=== PATIENT | male | born 1945 | race Caucasian/White ===

== ENCOUNTER 2023-12-31 11:18 | Inpatient (IN) | payer MEDICARE ==
[2023-12-31 12:17] LABS: #Basophils 0.04 10x3/uL (0.0-0.2); %Basophils 0.5 % (0.0-1.0); %Eosinophils 2.2 % (0.0-10.0); %Lymphocytes 16.4 % (21.0-51.0); %Monocytes 8.2 % (0.0-10.0); %Neutrophils 72.3 % (42.0-75.0); Hemoglobin 14.1 g/dL (14.0-18.0); Mean Corpuscular HGB CONC 33.6 g/dL (32.0-36.0); Mean Corpuscular Hemoglobin 28.4 pg (27.0-31.0); Mean Corpuscular Volume 84.7 fL (78.0-98.0); Mean Platelet Volume 10.3 fL (7.4-10.4); Platelet Count 241 10x3/uL (130-400); RBC Distribution Width 15.8 % (11.5-14.5); Red Blood Cell (RBC) Count 4.96 mill/uL (4.70-6.10)
[2023-12-31 12:41] LABS: Globulin 3.5 g/dL (2.4-3.5)
[2023-12-31 12:45] LABS: ALT (SGPT) 11 U/L (8-55); AST (SGOT) 13 U/L (5-34); Albumin 3.3 g/dL (3.4-4.8); Alkaline Phosphatase 74 U/L (40-110); Anion Gap 14 mmol/L (10-20); BUN (Urea Nitrogen) 25 mg/dL (8.4-25.7); Bilirubin, Total 0.4 mg/dL (0.2-1.2); Calc. Creatinine Clearance 0 mL/min (70-130); Calcium 9.3 mg/dL (7.8-10.44); Carbon Dioxide 23 mmol/L (23-31); Chloride 103 mmol/L (98-107); Estimated GFR 40; Glucose 253 mg/dL (83-110); Potassium 4.1 mmol/L (3.5-5.1); Protein, Total 6.8 g/dL (5.8-8.1); Sodium 136 mmol/L (136-145)
[2023-12-31 13:13] LABS: Critical Call Chem Troponin I NUR.JH15; Troponin I 0.408 ng/mL (< 0.028)
[2023-12-31] MEDS ORDERED: Iopamidol 370 76% 100 ML VIAL ONE (13:14)
[2023-12-31] MEDS ORDERED: Nitroglycerin 2% Ointment 1 INCH/1 GM Packet ONE (13:38)
[2023-12-31] MEDS ORDERED: Heparin 5,000 UNITS/ML VIAL ONE (13:38)
[2023-12-31] MEDS ORDERED: Heparin 25,000 units/D5W 500 ML ONE (13:39)
[2023-12-31 13:48] LABS: Prothrombin Time 13.1 sec (12.0-14.7)
[2023-12-31] MEDS ORDERED: Heparin 10,000 UNITS/ 10 ML VIAL ONE (14:38)
[2023-12-31] MEDS ORDERED: Verapamil 5 MG/2 ML VIAL ONE (14:38)
[2023-12-31] MEDS ORDERED: Nitroglycerin 50 MG/250 ML BOT 0 ML ONE (14:39)
[2023-12-31] MEDS ORDERED: Sodium Chloride 0.9% 500 ML IV SCH (15:00)
[2023-12-31] MEDS ORDERED: [UNRECOGNIZED DRUG - OTHER] FS SCH (15:00)
[2023-12-31] MEDS ORDERED: fentaNYL 50 mcg/mL 1 mL Vial ONE (15:14)
[2023-12-31] MEDS ORDERED: Midazolam HCl 2 mg/2 ml Vial ONE (15:15)
[2023-12-31] MEDS ORDERED: Sodium Chloride 0.9% 200 ML IV PRN (15:49)
[2023-12-31] MEDS ORDERED: Acetaminophen/Codeine 30-300mg Tablet PO PRN (15:49)
[2023-12-31] MEDS ORDERED: Nitroglycerin 0.4 MG TAB (25 Tab Bottle) SL PRN (15:49)
[2023-12-31] MEDS ORDERED: Communication Order-Pharmacy FS SCH (17:52)
[2023-12-31] MEDS ORDERED: Acetaminophen 325 MG TAB PO PRN (18:51)
[2023-12-31] MEDS ORDERED: Dextrose 5% in Water 1,000 ML IV PRN (18:51)
[2023-12-31] MEDS ORDERED: Dextrose 50% Abboject 50 ML SYRINGE SLOW IVP PRN (18:51)
[2023-12-31] MEDS ORDERED: HYDROcodone/Acetaminophen 5/325 mg Tablet PO PRN ×2 (18:51)
[2023-12-31] MEDS ORDERED: Ondansetron PF 4 MG/2 ML Vial IVP PRN (18:51)
[2023-12-31] MEDS ORDERED: Glucagon 1 MG/ML KIT IM PRN (18:51)
[2023-12-31] MEDS ORDERED: Bisacodyl 5 MG TAB PO PRN (18:51)
[2023-12-31] MEDS ORDERED: HumaLOG 300 UNITS/3 ML VIAL SC PRN (18:51)
[2023-12-31 19:40] LABS: Hemoglobin A1c 9.4 % (4.0-6.0)
[2023-12-31] MEDS: Sodium Chloride 0.9% 500 ML IV SCH (20:00)
[2023-12-31 20:35] LABS: Troponin I 0.659 ng/mL (< 0.028)
[2023-12-31 20:56] VITALS: BMI 25.0
[2023-12-31 23:53] LABS: Critical Call Chem Troponin I RESULT DECREASING; Troponin I 0.621 ng/mL (< 0.028)
[2024-01-01 04:58] LABS: #Basophils 0.05 10x3/uL (0.0-0.2); %Basophils 0.7 % (0.0-1.0); %Eosinophils 2.5 % (0.0-10.0); %Monocytes 7.7 % (0.0-10.0); %Neutrophils 67.8 % (42.0-75.0); Hemoglobin 12.9 g/dL (14.0-18.0); Mean Corpuscular HGB CONC 33.1 g/dL (32.0-36.0); Mean Corpuscular Hemoglobin 28.6 pg (27.0-31.0); Mean Corpuscular Volume 86.5 fL (78.0-98.0); Mean Platelet Volume 10.3 fL (7.4-10.4); Platelet Count 226 10x3/uL (130-400); RBC Distribution Width 15.8 % (11.5-14.5); Red Blood Cell (RBC) Count 4.51 mill/uL (4.70-6.10)
[2024-01-01 05:38] LABS: Anion Gap 12 mmol/L (10-20); BUN (Urea Nitrogen) 20 mg/dL (8.4-25.7); Calc. Creatinine Clearance 43 mL/min (70-130); Carbon Dioxide 24 mmol/L (23-31); Cardiac Risk 4.3 (Less than 4.5); Chloride 106 mmol/L (98-107); Cholesterol 138 mg/dl (< 200 Desired); Estimated GFR 50; Glucose 115 mg/dL (83-110); HDL Cholesterol 32 mg/dL (>60 Neg Risk); LDL Cholesterol, Calculated 84 mg/dL; Potassium 4.2 mmol/L (3.5-5.1); Sodium 138 mmol/L (136-145); Triglycerides 112 mg/dL (Less than 150)
[2024-01-01] MEDS ORDERED: Dextrose 5% in Water 1,000 ML IV PRN (09:11)
[2024-01-01] MEDS ORDERED: Glucagon 1 MG/ML KIT IM PRN (09:11)
[2024-01-01] MEDS ORDERED: Dextrose 50% Abboject 50 ML SYRINGE SLOW IVP PRN (09:11)
[2024-01-01] MEDS: Hydrochlorothiazide 25 MG TAB PO SCH (09:53)
[2024-01-01] MEDS: Aspirin 325 mg Enteric Coated Tablet PO SCH (09:53)
[2024-01-01] MEDS: Atorvastatin Calcium 40 MG TAB PO SCH (09:53)
[2024-01-01] MEDS: Pantoprazole 40 MG VIAL IVP SCH (09:54)
[2024-01-01] MEDS: Lisinopril 20 MG TAB PO SCH (09:54)
[2024-01-01 10:50] LABS: Hematocrit 41.5 % (42.0-52.0); Hemoglobin 13.9 g/dL (14.0-18.0); Platelet Count 233 10x3/uL (130-400)
[2024-01-01] MEDS: Morphine 4 MG/ML VIAL ONE (11:39)
[2024-01-01] MEDS: Nateglinide 120 MG TAB PO SCH (11:39)
[2024-01-01] MEDS: Heparin 25,000 units/D5W 500 ML IVPB SCH (11:40)
[2024-01-01] MEDS: Morphine 4 MG/ML VIAL SLOW IVP SCH (11:40)
[2024-01-01] MEDS: Nitroglycerin 50 MG/250 ML BOT 250 ML IVPB SCH (11:40)
[2024-01-01] MEDS: Heparin 10,000 UNITS/ 10 ML VIAL SLOW IVP SCH (11:46)
[2024-01-01] MEDS: HumaLOG 300 UNITS/3 ML VIAL SC PRN (12:19)
[2024-01-01] MEDS ORDERED: Communication Order-Pharmacy FS SCH (13:52)
[2024-01-01] MEDS ORDERED: [UNRECOGNIZED DRUG - REMARK] FS SCH (15:00)
[2024-01-02 04:55] LABS: #Basophils 0.05 10x3/uL (0.0-0.2); %Basophils 0.6 % (0.0-1.0); %Lymphocytes 21.4 % (21.0-51.0); %Monocytes 8.6 % (0.0-10.0); %Neutrophils 66.1 % (42.0-75.0); Hematocrit 39.6 % (42.0-52.0); Hemoglobin 13.1 g/dL (14.0-18.0); Mean Corpuscular HGB CONC 33.1 g/dL (32.0-36.0); Mean Corpuscular Hemoglobin 28.5 pg (27.0-31.0); Mean Corpuscular Volume 86.3 fL (78.0-98.0); Mean Platelet Volume 10.1 fL (7.4-10.4); Platelet Count 210 10x3/uL (130-400); RBC Distribution Width 15.9 % (11.5-14.5); Red Blood Cell (RBC) Count 4.59 mill/uL (4.70-6.10)
[2024-01-02 05:46] LABS: Anion Gap 12 mmol/L (10-20); BUN (Urea Nitrogen) 26 mg/dL (8.4-25.7); Calc. Creatinine Clearance 36 mL/min (70-130); Calcium 9.2 mg/dL (7.8-10.44); Carbon Dioxide 26 mmol/L (23-31); Chloride 102 mmol/L (98-107); Estimated GFR 41; Glucose 170 mg/dL (83-110); Potassium 4.7 mmol/L (3.5-5.1); Sodium 135 mmol/L (136-145)
[2024-01-02] MEDS: diphenhydrAMINE 50 MG/ML VIAL IVP SCH (21:51)
[2024-01-03] MEDS ORDERED: CEFAZOLIN 2 GM in Sodium Chloride 0.9% 100 ML IVPB SCH (00:01)
[2024-01-03 04:17] LABS: #Basophils 0.06 10x3/uL (0.0-0.2); %Basophils 0.7 % (0.0-1.0); %Eosinophils 3.4 % (0.0-10.0); %Lymphocytes 23.8 % (21.0-51.0); %Monocytes 10.7 % (0.0-10.0); %Neutrophils 61.1 % (42.0-75.0); Hematocrit 39.3 % (42.0-52.0); Hemoglobin 13.2 g/dL (14.0-18.0); Mean Corpuscular HGB CONC 33.6 g/dL (32.0-36.0); Mean Corpuscular Volume 83.4 fL (78.0-98.0); Mean Platelet Volume 10.3 fL (7.4-10.4); Platelet Count 222 10x3/uL (130-400); RBC Distribution Width 15.6 % (11.5-14.5); Red Blood Cell (RBC) Count 4.71 mill/uL (4.70-6.10)
[2024-01-03 04:58] LABS: Anion Gap 14 mmol/L (10-20); BUN (Urea Nitrogen) 31 mg/dL (8.4-25.7); Calc. Creatinine Clearance 31 mL/min (70-130); Calcium 9.3 mg/dL (7.8-10.44); Carbon Dioxide 24 mmol/L (23-31); Chloride 101 mmol/L (98-107); Estimated GFR 34; Glucose 175 mg/dL (83-110); Potassium 4.5 mmol/L (3.5-5.1); Sodium 134 mmol/L (136-145)
[2024-01-03] MEDS ORDERED: EPINEPHrine 1 MG/ML VIAL ONE (06:49)
[2024-01-03] MEDS ORDERED: PHENYLEPHRINE-NS 100 MCG/ML 10 ML SYRINGE ONE (06:49)
[2024-01-03] MEDS ORDERED: Bupivacaine PF 0.5% 30 ML VIAL ONE (06:49)
[2024-01-03] MEDS ORDERED: Albumin 5% 500 ML ONE (06:50)
[2024-01-03] MEDS ORDERED: Heparin 10,000 UNITS/1 ML VIAL 30,000 UNITS in Sodium Chloride 0.9% 1,000 ML FS SCH (07:00)
[2024-01-03] MEDS ORDERED: Fentanyl 250 MCG/5 ML VIAL ONE (07:39)
[2024-01-03] MEDS ORDERED: Rocuronium Bromide 10 MG/ML (10ML VIAL) ONE ×2 (07:39→07:40)
[2024-01-03] MEDS ORDERED: PROPOFOL 20 ML ONE (07:39)
[2024-01-03] MEDS ORDERED: CEFAZOLIN 2 GM VIAL ONE (08:06)
[2024-01-03] MEDS ORDERED: Thrombin 5000 UNITS/5 ML VIAL ONE (08:07)
[2024-01-03] MEDS ORDERED: Sodium Bicarb 50 mEq/50 ML VIAL ONE (08:07)
[2024-01-03] MEDS ORDERED: Mannitol 12.5 GM/50 ML ONE (08:07)
[2024-01-03] MEDS ORDERED: Calcium Chloride 1 GM/10 ML Abboject SYRINGE ONE (08:07)
[2024-01-03] MEDS ORDERED: Heparin 30,000 units/30 ml VIAL ONE (08:07)
[2024-01-03] MEDS ORDERED: Heparin 5,000 UNITS/ML VIAL ONE (08:07)
[2024-01-03] MEDS ORDERED: Cardioplegic Soln 1,000 ML BAG ONE (08:07)
[2024-01-03] MEDS ORDERED: Papaverine 60 MG/2 ML VIAL ONE (08:07)
[2024-01-03] MEDS ORDERED: Lidocaine 2% PF 100 mg/5 ml Syringe ONE (08:07)
[2024-01-03] MEDS ORDERED: Protamine Sulfate 250 MG/25 ML VIAL ONE (08:07)
[2024-01-03] MEDS ORDERED: Potassium Chloride 60 mEq (30 mL) VIAL ONE (08:07)
[2024-01-03] MEDS ORDERED: Vancomycin 1 GM VIAL ONE (08:07)
[2024-01-03] MEDS ORDERED: Aminocaproic Acid 5 GM/20 ML VIAL ONE (08:07)
[2024-01-03] MEDS ORDERED: Magnesium 5 GM/10 ML VIAL ONE (08:07)
[2024-01-03] MEDS ORDERED: Midazolam HCl 2 mg/2 ml Vial ONE ×2 (08:12→09:47)
[2024-01-03] MEDS ORDERED: Insulin Regular 300 UNITS/3 ML VIAL ONE (09:26)
[2024-01-03] MEDS ORDERED: Ondansetron PF 4 MG/2 ML Vial ONE (11:46)
[2024-01-03] MEDS ORDERED: traMADol HCl 50 MG TAB PO PRN ×2 (12:18)
[2024-01-03] MEDS ORDERED: Morphine 2 MG/ML VIAL SLOW IVP PRN (12:18)
[2024-01-03] MEDS ORDERED: fentaNYL 50 mcg/mL 1 mL Vial SLOW IVP PRN (12:18)
[2024-01-03] MEDS ORDERED: Guaifenesin DM 100-10/5 ML UDCUP PO PRN (12:18)
[2024-01-03] MEDS ORDERED: Bisacodyl 5 MG TAB PO PRN (12:18)
[2024-01-03] MEDS ORDERED: hydrALAZINE 20 MG/ML VIAL SLOW IVP PRN (12:18)
[2024-01-03] MEDS ORDERED: niCARdipine 25 MG in Sodium Chloride 0.9% 250 ML 250 ML IVPB PRN (12:18)
[2024-01-03] MEDS ORDERED: Ipratropium/Albuterol 3 ML NEB NEB PRN (12:18)
[2024-01-03] MEDS ORDERED: Mag-Al 1200 mg/1200 mg/30 ML UDCUP PO PRN (12:18)
[2024-01-03] MEDS ORDERED: NOREPINEPHRINE 8 MG/250 ML-D5W 250 ML IVPB PRN (12:18)
[2024-01-03] MEDS ORDERED: Bisacodyl 10 MG SUPP PR PRN (12:18)
[2024-01-03] MEDS ORDERED: fentaNYL 50 mcg/mL 1 mL Vial ONE (12:28)
[2024-01-03] MEDS ORDERED: Dextrose 5% in Water 1,000 ML IV PRN (12:45)
[2024-01-03] MEDS ORDERED: Glucagon 1 MG/ML KIT SC PRN (12:45)
[2024-01-03] MEDS ORDERED: Dextrose 50% Abboject 50 ML SYRINGE SLOW IVP PRN (12:45)
[2024-01-03] MEDS ORDERED: Insulin Reg, Human 100 UNITS in Sodium Chloride 0.9% 100 ML IVPB SCH (12:45)
[2024-01-03 12:49] LABS: Actual Bicarbonate (HCO3a) 19.7 mEq/L (22-28); Base Excess (BEa) -4.9 mEq/L (-2.0 to +3.0); CO2 Tension 34.9 mmHg (35.0-45.0); Calcium, Ionized (arterial) 1.07 mmol/L (1.12-1.30); Carboxyhemoglobin (COHb) 0.3 gm% (0.0-3.0); Hematocrit-ABG 33 % (42.0-52.0); Hemoglobin (Hb) 11.3 g/dL (14.0-18.0); O2 Tension (PaO2), arterial 109.9 mmHg (> 60.0); Potassium - ABG Lab 3.41 mmol/L (3.70-5.30); pH, Arterial 7.369 (7.35-7.45)
[2024-01-03 12:51] LABS: ALV-art Gradient 274.275 mmHg (0-20); Puncture Site Arterial Line
[2024-01-03 13:09] LABS: Hematocrit 32.6 % (42.0-52.0); Hemoglobin 10.9 g/dL (14.0-18.0); Platelet Count 167 10x3/uL (130-400)
[2024-01-03] MEDS: fentaNYL 50 mcg/mL 1 mL Vial SLOW IVP PRN (13:11)
[2024-01-03] MEDS: NS 0.9% w/ 20 MEQ KCL 1,000 ML IV SCH (13:11)
[2024-01-03] MEDS: Post-Op Insulin Drip Protocol IVPB ONE (13:11)
[2024-01-03] MEDS: Magnesium 2 GM/50 ML(in water) 2 GM in Premix 1 BAG IVPB SCH (13:11)
[2024-01-03 13:12] LABS: #Basophils 0.05 10x3/uL (0.0-0.2); %Basophils 0.3 % (0.0-1.0); %Eosinophils 0.4 % (0.0-10.0); %Monocytes 10.3 % (0.0-10.0); %Neutrophils 77.4 % (42.0-75.0); Hemoglobin 10.7 g/dL (14.0-18.0); Mean Corpuscular HGB CONC 32.4 g/dL (32.0-36.0); Mean Corpuscular Hemoglobin 28.8 pg (27.0-31.0); Mean Corpuscular Volume 88.7 fL (78.0-98.0); Mean Platelet Volume 10.8 fL (7.4-10.4); Platelet Count 168 10x3/uL (130-400); RBC Distribution Width 15.8 % (11.5-14.5); Red Blood Cell (RBC) Count 3.72 mill/uL (4.70-6.10)
[2024-01-03 13:25] LABS: INR-International Normal Ratio 1.4; PTT 33.3 sec (22.9-36.1); Prothrombin Time 17.5 sec (12.0-14.7)
[2024-01-03 13:45] LABS: Anion Gap 10 mmol/L (10-20); BUN (Urea Nitrogen) 23 mg/dL (8.4-25.7); Calc. Creatinine Clearance 52 mL/min (70-130); Calcium 6.9 mg/dL (7.8-10.44); Carbon Dioxide 17 mmol/L (23-31); Chloride 117 mmol/L (98-107); Estimated GFR 64; Glucose 72 mg/dL (83-110); Potassium 3.4 mmol/L (3.5-5.1); Sodium 141 mmol/L (136-145)
[2024-01-03] MEDS: Mecobalamin [B12 Active] 1,000 MCG Tab.Chew PO SCH (13:52)
[2024-01-03] MEDS: CEFAZOLIN 2 GM in Sodium Chloride 0.9% 100 ML IVPB SCH (14:55)
[2024-01-03] MEDS: Albumin 5% 12.5 GM (250 mL) BOT IVPB PRN ×2 (15:16→22:43)
[2024-01-03] MEDS: CALCIUM GLUC 1 GM/NS 50 ML 1 GM in Premix 1 BAG IVPB SCH (15:26)
[2024-01-03 15:32] LABS: Actual Bicarbonate (HCO3a) 16.3 mEq/L (22-28); CO2 Tension 33.1 mmHg (35.0-45.0); Calcium, Ionized (arterial) 1.07 mmol/L (1.12-1.30); Carboxyhemoglobin (COHb) 0.1 gm% (0.0-3.0); Hematocrit-ABG 35 % (42.0-52.0); O2 Tension (PaO2), arterial 89.8 mmHg (> 60.0); Potassium - ABG Lab 3.94 mmol/L (3.70-5.30); pH, Arterial 7.309 (7.35-7.45)
[2024-01-03 15:44] LABS: ALV-art Gradient 154.025 mmHg (0-20); Puncture Site Arterial Line
[2024-01-03] MEDS: Insulin Regular 300 UNITS/3 ML VIAL SC PRN (16:03)
[2024-01-03] MEDS: Ondansetron PF 4 MG/2 ML Vial IVP PRN (16:03)
[2024-01-03 18:01] LABS: Hematocrit 35.5 % (42.0-52.0); Hemoglobin 11.5 g/dL (14.0-18.0)
[2024-01-03 19:01] LABS: Potassium 4.8 mmol/L (3.5-5.1)
[2024-01-03] MEDS: Famotidine/PF 20 mg/2ml Vial SLOW IVP SCH (19:41)
[2024-01-03] MEDS: Atorvastatin Calcium 20 MG TAB PO SCH (19:41)
[2024-01-03] MEDS: HYDROcodone/Acetaminophen 5/325 mg Tablet PO PRN (20:45)
[2024-01-04] MEDS: Magnesium 2 GM/50 ML(in water) 2 GM in Premix 1 BAG IVPB SCH (08:32)
[2024-01-04] MEDS: Lidocaine 4% Patch TD SCH (08:32)
[2024-01-04] MEDS: Aspirin Chewable 81 MG TAB PO SCH (08:33)
[2024-01-04 09:35] LABS: Anion Gap 13 mmol/L (10-20); BUN (Urea Nitrogen) 23 mg/dL (8.4-25.7); Calc. Creatinine Clearance 43 mL/min (70-130); Carbon Dioxide 18 mmol/L (23-31); Chloride 111 mmol/L (98-107); Estimated GFR 51; Glucose 116 mg/dL (83-110); Potassium 4.7 mmol/L (3.5-5.1); Sodium 137 mmol/L (136-145)
[2024-01-04 09:56] LABS: #Basophils Less than 0.03 10x3/uL (0.0-0.2); #Eosinphils Less than 0.03 10x3/uL (0.0-0.7); %Basophils 0.1 % (0.0-1.0); %Lymphocytes 5.5 % (21.0-51.0); %Monocytes 10.7 % (0.0-10.0); %Neutrophils 83.1 % (42.0-75.0); Hematocrit 32.7 % (42.0-52.0); Hemoglobin 10.4 g/dL (14.0-18.0); Mean Corpuscular HGB CONC 31.8 g/dL (32.0-36.0); Mean Corpuscular Hemoglobin 28.8 pg (27.0-31.0); Mean Corpuscular Volume 90.6 fL (78.0-98.0); Mean Platelet Volume 11.5 fL (7.4-10.4); Platelet Count 175 10x3/uL (130-400); RBC Distribution Width 16.2 % (11.5-14.5); Red Blood Cell (RBC) Count 3.61 mill/uL (4.70-6.10)
[2024-01-04] MEDS: Acetaminophen 325 MG TAB PO PRN (10:32)
[2024-01-04] MEDS: Promethazine HCl 25 MG/ML VIAL IM PRN (10:35)
[2024-01-04] MEDS ORDERED: Nitroglycerin 0.4 MG TAB (25 Tab Bottle) SL PRN (11:26)
[2024-01-04] MEDS ORDERED: Mineral Oil ENEMA PR PRN (11:26)
[2024-01-04] MEDS ORDERED: Artificial Tear Sol 15 ML BOT EA EYE PRN (11:26)
[2024-01-04] MEDS ORDERED: Insulin Glargine 30 UNITS/0.3 ML VIAL SC PRN (12:37)
[2024-01-04] MEDS: diphenhydrAMINE 25 MG CAP PO PRN (19:29)
[2024-01-04] MEDS: Famotidine 20 MG TAB PO SCH (19:29)
[2024-01-04] MEDS: Transdermal Patch Removal TOP SCH (19:30)
[2024-01-05 04:54] LABS: #Basophils 0.03 10x3/uL (0.0-0.2); #Eosinphils Less than 0.03 10x3/uL (0.0-0.7); %Basophils 0.2 % (0.0-1.0); %Eosinophils 0.1 % (0.0-10.0); %Lymphocytes 8.5 % (21.0-51.0); %Monocytes 11.9 % (0.0-10.0); %Neutrophils 78.4 % (42.0-75.0); Hematocrit 30.3 % (42.0-52.0); Hemoglobin 10.1 g/dL (14.0-18.0); Mean Corpuscular HGB CONC 33.3 g/dL (32.0-36.0); Mean Corpuscular Hemoglobin 28.7 pg (27.0-31.0); Mean Corpuscular Volume 86.1 fL (78.0-98.0); Mean Platelet Volume 10.9 fL (7.4-10.4); Platelet Count 156 10x3/uL (130-400); RBC Distribution Width 16.6 % (11.5-14.5); Red Blood Cell (RBC) Count 3.52 mill/uL (4.70-6.10)
[2024-01-05 05:31] LABS: Anion Gap 13 mmol/L (10-20); BUN (Urea Nitrogen) 23 mg/dL (8.4-25.7); Calc. Creatinine Clearance 47 mL/min (70-130); Calcium 8.1 mg/dL (7.8-10.44); Carbon Dioxide 19 mmol/L (23-31); Chloride 107 mmol/L (98-107); Estimated GFR 57; Glucose 133 mg/dL (83-110); Potassium 4.3 mmol/L (3.5-5.1); Sodium 135 mmol/L (136-145)
[2024-01-05 10:35] LABS: Hematocrit 30.8 % (42.0-52.0); Hemoglobin 10.1 g/dL (14.0-18.0); Platelet Count 164 10x3/uL (130-400)
[2024-01-05] MEDS: Insulin Glargine 30 UNITS/0.3 ML VIAL SC SCH (18:39)
[2024-01-06 05:06] LABS: #Basophils Less than 0.03 10x3/uL (0.0-0.2); %Basophils 0.2 % (0.0-1.0); %Eosinophils 1.7 % (0.0-10.0); %Monocytes 12.1 % (0.0-10.0); %Neutrophils 73.3 % (42.0-75.0); Hematocrit 30.6 % (42.0-52.0); Hemoglobin 9.9 g/dL (14.0-18.0); Mean Corpuscular HGB CONC 32.4 g/dL (32.0-36.0); Mean Corpuscular Hemoglobin 28.4 pg (27.0-31.0); Mean Corpuscular Volume 87.9 fL (78.0-98.0); Mean Platelet Volume 11.6 fL (7.4-10.4); Platelet Count 154 10x3/uL (130-400); RBC Distribution Width 16.6 % (11.5-14.5); Red Blood Cell (RBC) Count 3.48 mill/uL (4.70-6.10)
[2024-01-06 05:23] LABS: Anion Gap 12 mmol/L (10-20); BUN (Urea Nitrogen) 24 mg/dL (8.4-25.7); Calc. Creatinine Clearance 49 mL/min (70-130); Calcium 8.3 mg/dL (7.8-10.44); Carbon Dioxide 22 mmol/L (23-31); Chloride 108 mmol/L (98-107); Estimated GFR 59; Glucose 124 mg/dL (83-110); Potassium 4.2 mmol/L (3.5-5.1); Sodium 138 mmol/L (136-145)
[2024-01-06 09:31] VITALS: BMI 27.5
[2024-01-06] MEDS: Furosemide 20 MG (2 mL) VIAL SLOW IVP SCH (10:16)
[2024-01-06] MEDS: Insulin Glargine 30 UNITS/0.3 ML VIAL SC SCH ×2 (10:16→20:39)
[2024-01-06] MEDS: Pioglitazone HCl 15 MG TAB PO SCH (10:16)
[2024-01-06] MEDS: Senokot S 8.6-50 MG TAB PO SCH (10:17)
[2024-01-07 03:56] LABS: #Basophils Less than 0.03 10x3/uL (0.0-0.2); %Basophils 0.2 % (0.0-1.0); %Eosinophils 4.2 % (0.0-10.0); %Lymphocytes 11.8 % (21.0-51.0); %Monocytes 10.3 % (0.0-10.0); %Neutrophils 73.1 % (42.0-75.0); Hematocrit 31.8 % (42.0-52.0); Hemoglobin 10.5 g/dL (14.0-18.0); Mean Corpuscular Hemoglobin 28.2 pg (27.0-31.0); Mean Corpuscular Volume 85.3 fL (78.0-98.0); Platelet Count 188 10x3/uL (130-400); Red Blood Cell (RBC) Count 3.73 mill/uL (4.70-6.10)
[2024-01-07 04:35] LABS: Anion Gap 13 mmol/L (10-20); BUN (Urea Nitrogen) 24 mg/dL (8.4-25.7); Calc. Creatinine Clearance 60 mL/min (70-130); Calcium 8.2 mg/dL (7.8-10.44); Carbon Dioxide 22 mmol/L (23-31); Chloride 108 mmol/L (98-107); Estimated GFR 68; Glucose 95 mg/dL (83-110); Potassium 3.8 mmol/L (3.5-5.1); Sodium 139 mmol/L (136-145)
[2024-01-07] MEDS ORDERED: HYDROcodone/Acetaminophen 5/325 mg Tablet PO PRN (06:29)
[2024-01-07 10:24] LABS: Hematocrit 31.8 % (42.0-52.0); Hemoglobin 10.9 g/dL (14.0-18.0); Platelet Count 214 10x3/uL (130-400)
[2024-01-07 12:17] LABS: Actual Bicarbonate (HCO3a) 22.1 mEq/L (22-28); Analyzer IN Cardio OR; Base Excess (BEa) -1.7 mEq/L (-2.0 to +3.0); CO2 Tension 34.9 mmHg (35.0-45.0); Calcium, Ionized (arterial) 1.12 mmol/L (1.12-1.30); Carboxyhemoglobin (COHb) 0.6 gm% (0.0-3.0); Hematocrit-ABG 39 % (42.0-52.0); Hemoglobin (Hb) 13.4 g/dL (14.0-18.0); O2 Tension (PaO2), arterial 387.4 mmHg (> 60.0); Potassium - ABG Lab 4.13 mmol/L (3.70-5.30)
[2024-01-07 12:18] LABS: Actual Bicarbonate (HCO3a) 19.4 mEq/L (22-28); Analyzer IN Cardio OR; Base Excess (BEa) -3.8 mEq/L (-2.0 to +3.0); CO2 Tension 30.1 mmHg (35.0-45.0); Calcium, Ionized (arterial) 1.09 mmol/L (1.12-1.30); Carboxyhemoglobin (COHb) 0.6 gm% (0.0-3.0); Hematocrit-ABG 38 % (42.0-52.0); Hemoglobin (Hb) 12.9 g/dL (14.0-18.0); O2 Tension (PaO2), arterial 248.1 mmHg (> 60.0); Potassium - ABG Lab 4.21 mmol/L (3.70-5.30); pH, Arterial 7.427 (7.35-7.45)
[2024-01-07 12:18] LABS: Analyzer IN Cardio OR; Base Excess (BEa) -5.3 mEq/L (-2.0 to +3.0); CO2 Tension 37.8 mmHg (35.0-45.0); Calcium, Ionized (arterial) 1.04 mmol/L (1.12-1.30); Carboxyhemoglobin (COHb) 0.3 gm% (0.0-3.0); Hematocrit-ABG 31 % (42.0-52.0); Hemoglobin (Hb) 10.4 g/dL (14.0-18.0); O2 Tension (PaO2), arterial 410.2 mmHg (> 60.0); Potassium - ABG Lab 4.44 mmol/L (3.70-5.30); pH, Arterial 7.341 (7.35-7.45)
[2024-01-07 12:19] LABS: Actual Bicarbonate (HCO3a) 22.5 mEq/L (22-28); Analyzer IN Cardio OR; Base Excess (BEa) -3.3 mEq/L (-2.0 to +3.0); CO2 Tension 43.7 mmHg (35.0-45.0); Calcium, Ionized (arterial) 1.36 mmol/L (1.12-1.30); Carboxyhemoglobin (COHb) 0.1 gm% (0.0-3.0); Hematocrit-ABG 31 % (42.0-52.0); Hemoglobin (Hb) 10.4 g/dL (14.0-18.0); O2 Tension (PaO2), arterial 154.8 mmHg (> 60.0); Potassium - ABG Lab 4.07 mmol/L (3.70-5.30)
[2024-01-07 12:24] LABS: Actual Bicarbonate (HCO3a) 21.4 mEq/L (22-28); Analyzer IN Cardio OR; Base Excess (BEa) -2.9 mEq/L (-2.0 to +3.0); CO2 Tension 35.1 mmHg (35.0-45.0); Calcium, Ionized (arterial) 1.09 mmol/L (1.12-1.30); Carboxyhemoglobin (COHb) 0.2 gm% (0.0-3.0); Hematocrit-ABG 30 % (42.0-52.0); Hemoglobin (Hb) 10.3 g/dL (14.0-18.0); O2 Tension (PaO2), arterial 271.3 mmHg (> 60.0); Potassium - ABG Lab 3.48 mmol/L (3.70-5.30); pH, Arterial 7.402 (7.35-7.45)
[2024-01-07] MEDS: Atorvastatin Calcium 40 MG TAB PO SCH (21:43)
[2024-01-08 04:42] LABS: Anion Gap 14 mmol/L (10-20); BUN (Urea Nitrogen) 22 mg/dL (8.4-25.7); Calc. Creatinine Clearance 59 mL/min (70-130); Calcium 8.2 mg/dL (7.8-10.44); Carbon Dioxide 22 mmol/L (23-31); Cardiac Risk 5.7 (Less than 4.5); Chloride 105 mmol/L (98-107); Cholesterol 97 mg/dl (< 200 Desired); Estimated GFR 69; Glucose 149 mg/dL (83-110); HDL Cholesterol 17 mg/dL (>60 Neg Risk); LDL Cholesterol, Calculated 58 mg/dL; Potassium 3.9 mmol/L (3.5-5.1); Sodium 137 mmol/L (136-145); Triglycerides 110 mg/dL (Less than 150)
[2024-01-08 06:34] LABS: #Basophils 0.04 10x3/uL (0.0-0.2); %Basophils 0.5 % (0.0-1.0); %Eosinophils 3.3 % (0.0-10.0); %Lymphocytes 14.4 % (21.0-51.0); %Monocytes 10.6 % (0.0-10.0); Hematocrit 31.8 % (42.0-52.0); Hemoglobin 10.7 g/dL (14.0-18.0); Mean Corpuscular HGB CONC 33.6 g/dL (32.0-36.0); Mean Corpuscular Hemoglobin 28.8 pg (27.0-31.0); Mean Corpuscular Volume 85.5 fL (78.0-98.0); Mean Platelet Volume 10.4 fL (7.4-10.4); Platelet Count 248 10x3/uL (130-400); RBC Distribution Width 15.9 % (11.5-14.5); Red Blood Cell (RBC) Count 3.72 mill/uL (4.70-6.10)
[2024-01-09 04:52] LABS: #Basophils 0.05 10x3/uL (0.0-0.2); %Basophils 0.6 % (0.0-1.0); %Eosinophils 5.6 % (0.0-10.0); %Lymphocytes 16.4 % (21.0-51.0); %Monocytes 11.5 % (0.0-10.0); %Neutrophils 65.3 % (42.0-75.0); Hematocrit 31.3 % (42.0-52.0); Hemoglobin 10.3 g/dL (14.0-18.0); Mean Corpuscular HGB CONC 32.9 g/dL (32.0-36.0); Mean Corpuscular Hemoglobin 27.9 pg (27.0-31.0); Mean Corpuscular Volume 84.8 fL (78.0-98.0); Mean Platelet Volume 11.3 fL (7.4-10.4); Platelet Count 273 10x3/uL (130-400); RBC Distribution Width 15.9 % (11.5-14.5); Red Blood Cell (RBC) Count 3.69 mill/uL (4.70-6.10)
[2024-01-09 05:17] LABS: Anion Gap 12 mmol/L (10-20); BUN (Urea Nitrogen) 22 mg/dL (8.4-25.7); Calc. Creatinine Clearance 57 mL/min (70-130); Calcium 8.4 mg/dL (7.8-10.44); Carbon Dioxide 25 mmol/L (23-31); Chloride 105 mmol/L (98-107); Estimated GFR 69; Glucose 124 mg/dL (83-110); Potassium 3.2 mmol/L (3.5-5.1); Sodium 139 mmol/L (136-145)
[2024-01-09] MEDS ORDERED: Iopamidol 370 76% 100 ML VIAL ONE (09:29)
[2024-01-09] MEDS: Potassium Chloride 20 MEQ TAB PO SCH (09:38)
[2024-01-09] MEDS: Lisinopril 20 MG TAB PO SCH (09:38)
[2024-01-09 10:40] LABS: Hematocrit 34.2 % (42.0-52.0); Hemoglobin 11.1 g/dL (14.0-18.0); Platelet Count 272 10x3/uL (130-400)
[2024-01-09] MEDS: Potassium Chloride 20 MEQ (100 mL) BAG IVPB PRN (23:07)
[2024-01-10 05:45] LABS: #Basophils 0.03 10x3/uL (0.0-0.2); %Basophils 0.4 % (0.0-1.0); %Eosinophils 4.8 % (0.0-10.0); %Lymphocytes 14.4 % (21.0-51.0); %Monocytes 10.4 % (0.0-10.0); %Neutrophils 69.3 % (42.0-75.0); Hematocrit 30.5 % (42.0-52.0); Hemoglobin 10.2 g/dL (14.0-18.0); Mean Corpuscular HGB CONC 33.4 g/dL (32.0-36.0); Mean Corpuscular Hemoglobin 28.2 pg (27.0-31.0); Mean Corpuscular Volume 84.3 fL (78.0-98.0); Mean Platelet Volume 11.6 fL (7.4-10.4); Platelet Count 280 10x3/uL (130-400); RBC Distribution Width 15.9 % (11.5-14.5); Red Blood Cell (RBC) Count 3.62 mill/uL (4.70-6.10)
[2024-01-10 06:08] LABS: Anion Gap 11 mmol/L (10-20); BUN (Urea Nitrogen) 18 mg/dL (8.4-25.7); Calc. Creatinine Clearance 65 mL/min (70-130); Calcium 8.5 mg/dL (7.8-10.44); Carbon Dioxide 27 mmol/L (23-31); Chloride 106 mmol/L (98-107); Estimated GFR 80; Glucose 119 mg/dL (83-110); Potassium 3.8 mmol/L (3.5-5.1); Sodium 140 mmol/L (136-145)
[2024-01-10] MEDS: Enoxaparin 80 MG (0.8 mL) SYRINGE SC SCH (09:23)
[2024-01-10] MEDS ORDERED: Enoxaparin 80 MG (0.8 mL) SYRINGE SC SCH (21:00)
[2024-01-10] MEDS: Apixaban 2.5 MG TAB PO SCH (21:01)
[2024-01-11 05:01] LABS: #Basophils Less than 0.03 10x3/uL (0.0-0.2); %Basophils 0.2 % (0.0-1.0); %Eosinophils 3.7 % (0.0-10.0); %Lymphocytes 15.9 % (21.0-51.0); %Monocytes 10.6 % (0.0-10.0); %Neutrophils 69.1 % (42.0-75.0); Hematocrit 31.8 % (42.0-52.0); Hemoglobin 10.5 g/dL (14.0-18.0); Mean Corpuscular Hemoglobin 28.5 pg (27.0-31.0); Mean Corpuscular Volume 86.4 fL (78.0-98.0); Mean Platelet Volume 11.5 fL (7.4-10.4); Platelet Count 234 10x3/uL (130-400); RBC Distribution Width 15.9 % (11.5-14.5); Red Blood Cell (RBC) Count 3.68 mill/uL (4.70-6.10)
[2024-01-11 05:25] LABS: Anion Gap 13 mmol/L (10-20); BUN (Urea Nitrogen) 15 mg/dL (8.4-25.7); Calc. Creatinine Clearance 62 mL/min (70-130); Calcium 8.7 mg/dL (7.8-10.44); Carbon Dioxide 27 mmol/L (23-31); Chloride 104 mmol/L (98-107); Estimated GFR 75; Glucose 67 mg/dL (83-110); Potassium 3.7 mmol/L (3.5-5.1); Sodium 140 mmol/L (136-145)
[2024-01-11] MEDS: Apixaban 5 MG TAB PO SCH (08:40)
[2024-01-11 10:01] LABS: Hematocrit 30.2 % (42.0-52.0); Hemoglobin 10.1 g/dL (14.0-18.0); Platelet Count 231 10x3/uL (130-400)
[2024-01-11 11:07] VITALS: TEMP 98.6
[2024-01-11 13:20] VITALS: BP 169/79
== END 2024-01-11 11:40 | disposition home or self-care (01) | DRG 233 ==
LOC: ERS 11:18 → CCL 15:08 → IMCU/EMU 15:43 → CCU 01-01 11:16 → 2NO 01-05 13:01
PROVIDERS: ADMIT Internal Medicine Cardiovascular Disease; ATTEND Emergency Medicine
PROC: 4A023N7 Measurement of Cardiac Sampling and Pressure, Left Heart, Percutaneous Approach (ICD-10-PCS; principal; 2023-12-31)
PROC: B2111ZZ Fluoroscopy of Multiple Coronary Arteries using Low Osmolar Contrast (ICD-10-PCS; 2023-12-31)
PROC: B2151ZZ Fluoroscopy of Left Heart using Low Osmolar Contrast (ICD-10-PCS; 2023-12-31)
PROC: 02100Z9 Bypass Coronary Artery, One Artery from Left Internal Mammary, Open Approach (ICD-10-PCS; 2024-01-03)
PROC: 021209W Bypass Coronary Artery, Three Arteries from Aorta with Autologous Venous Tissue, Open Approach (ICD-10-PCS; 2024-01-03)
PROC: 06BQ4ZZ Excision of Left Saphenous Vein, Percutaneous Endoscopic Approach (ICD-10-PCS; 2024-01-03)
PROC: 02L70CK Occlusion of Left Atrial Appendage with Extraluminal Device, Open Approach (ICD-10-PCS; 2024-01-03)
PROC: 5A1221Z Performance of Cardiac Output, Continuous (ICD-10-PCS; 2024-01-03)
PROC: 4A133R1 Monitoring of Arterial Saturation, Peripheral, Percutaneous Approach (ICD-10-PCS; 2024-01-03)
PROC: 30233J1 Transfusion of Nonautologous Serum Albumin into Peripheral Vein, Percutaneous Approach (ICD-10-PCS; 2024-01-03)
PROC: 3E033XZ Introduction of Vasopressor into Peripheral Vein, Percutaneous Approach (ICD-10-PCS; 2024-01-03)
DX: I21.4 Non-ST elevation (NSTEMI) myocardial infarction (principal); I26.99 Other pulmonary embolism without acute cor pulmonale; I63.9 Cerebral infarction, unspecified; N17.9 Acute kidney failure, unspecified; N18.30 Chronic kidney disease, stage 3 unspecified; E11.22 Type 2 diabetes mellitus with diabetic chronic kidney disease; I25.110 Atherosclerotic heart disease of native coronary artery with unstable angina pectoris; I12.9 Hypertensive chronic kidney disease with stage 1 through stage 4 chronic kidney disease, or unspecified chronic kidney disease; Z90.49 Acquired absence of other specified parts of digestive tract; E78.5 Hyperlipidemia, unspecified; E11.65 Type 2 diabetes mellitus with hyperglycemia; Z79.4 Long term (current) use of insulin; E87.6 Hypokalemia; Z79.899 Other long term (current) drug therapy; Z79.01 Long term (current) use of anticoagulants; Z79.82 Long term (current) use of aspirin
CPT/HCPCS: 36415; 36416; 36430; 70450; 70551; 71045; 71275; 72148; 80048; 80053; 80061; 82805; 83036; 83690; 83880; 84484; 85014; 85018; 85025; 85049; 85347; 85379; 85610; 85730; 86850; 86900; 86901; 93005; 93010; 93306; 93458; 93798; 93880; 93923; 94002; 96374; 97139; A4311; A4648; C1751; C1769; C1887; C9113; J0171; J0613; J0665; J1200; J1644; J1650; J1815; J1940; J2001; J2150; J2250; J2270; J2405; J2440; J2550; J2704; J2720; J3010; J3370; J3475; J3480; J3490; J7030; P9045; Q9967; S0017; S0028

== ENCOUNTER 2024-08-21 17:25 | Observation (INO) | payer MEDICARE, OTHER ==
[2024-08-21 17:57] LABS: #Basophils 0.04 10x3/uL (0.0-0.2); %Basophils 0.5 % (0.0-1.0); %Eosinophils 1.6 % (0.0-10.0); %Lymphocytes 16.3 % (21.0-51.0); %Monocytes 6.9 % (0.0-10.0); %Neutrophils 74.2 % (42.0-75.0); Hematocrit 38.6 % (42.0-52.0); Hemoglobin 12.6 g/dL (14.0-18.0); Mean Corpuscular HGB CONC 32.6 g/dL (32.0-36.0); Mean Corpuscular Hemoglobin 27.3 pg (27.0-31.0); Mean Corpuscular Volume 83.5 fL (78.0-98.0); Mean Platelet Volume 10.2 fL (7.4-10.4); Platelet Count 198 10x3/uL (130-400); RBC Distribution Width 18.2 % (11.5-14.5); Red Blood Cell (RBC) Count 4.62 mill/uL (4.70-6.10)
[2024-08-21 18:14] LABS: ALT (SGPT) 17 U/L (8-55); AST (SGOT) 14 U/L (5-34); Albumin 3.5 g/dL (3.4-4.8); Alkaline Phosphatase 81 U/L (40-110); Anion Gap 13 mmol/L (10-20); BUN (Urea Nitrogen) 19 mg/dL (8.4-25.7); Bilirubin, Total 0.6 mg/dL (0.2-1.2); Calc. Creatinine Clearance 0 mL/min (70-130); Calcium 8.9 mg/dL (7.8-10.44); Carbon Dioxide 22 mmol/L (23-31); Chloride 105 mmol/L (98-107); Estimated GFR 63; Globulin 3.2 g/dL (2.4-3.5); Glucose 126 mg/dL (83-110); Magnesium 1.9 mg/dL (1.6-2.6); Potassium 4.1 mmol/L (3.5-5.1); Protein, Total 6.7 g/dL (5.8-8.1); Sodium 136 mmol/L (136-145)
[2024-08-21 18:19] LABS: Troponin I Less than 0.010 ng/mL (< 0.028)
[2024-08-21] MEDS ORDERED: Magnesium 2 GM/50 ML BAG (IN WATER) ONE (19:27)
[2024-08-22] MEDS ORDERED: Cyclobenzaprine 10 MG TAB PO PRN (00:43)
[2024-08-22] MEDS ORDERED: traMADol HCl 50 MG TAB PO PRN (00:43)
[2024-08-22] MEDS ORDERED: Morphine 2 MG/ML VIAL SLOW IVP PRN (00:43)
[2024-08-22] MEDS ORDERED: Glucagon 1 MG/ML KIT IM PRN (00:57)
[2024-08-22] MEDS ORDERED: Insulin Regular, Human 100 UNIT/ML 10 ML VIAL SC PRN (00:57)
[2024-08-22] MEDS ORDERED: Dextrose 50% Abboject 50 ML SYRINGE SLOW IVP PRN (00:57)
[2024-08-22] MEDS ORDERED: Dextrose 5% in Water 1,000 ML IV PRN (00:57)
[2024-08-22 01:49] VITALS: BMI 24.5
[2024-08-22] MEDS: Acetaminophen 325 MG TAB PO SCH (05:15)
[2024-08-22] MEDS: traMADol HCl 50 MG TAB PO SCH (05:15)
[2024-08-22] MEDS: Polyethylene Glycol 3350 17 GM Packet PO SCH (08:43)
[2024-08-22] MEDS: Senokot S 8.6-50 MG TAB PO SCH (08:43)
[2024-08-22] MEDS: Enoxaparin 40 MG (0.4 mL) SYRINGE SC SCH (08:49)
[2024-08-22] MEDS: Atorvastatin Calcium 40 MG TAB PO SCH (08:49)
[2024-08-22] MEDS: Lisinopril 20 MG TAB PO SCH (08:49)
[2024-08-22] MEDS: Aspirin Chewable 81 MG TAB PO SCH (08:49)
[2024-08-22] MEDS ORDERED: Nateglinide 120 MG TAB PO SCH (11:30)
[2024-08-22] MEDS: Nateglinide 120 MG TAB PO SCH (11:48)
[2024-08-22 15:08] VITALS: BP 131/67; TEMP 98
[2024-08-23] MEDS ORDERED: METFORMIN HCL PO SCH ×2 (08:00)
[2024-08-23] MEDS ORDERED: [UNRECOGNIZED DRUG - OTHER] PO SCH (08:00)
[2024-08-23] MEDS ORDERED: DAPAGLIFLOZIN PO SCH ×2 (08:00)
[2024-08-23] MEDS ORDERED: Non-Formulary Item 1 EACH (Mecobalamin [B12 Active] 1,000 MCG Tab.Chew) PO SCH (09:00)
[2024-08-23] MEDS ORDERED: Non-Formulary Item 1 EACH (Pioglitazone Hcl [Pioglitazone Hcl] 30 MG Tablet) PO SCH (09:00)
[2024-08-23] MEDS ORDERED: Lisinopril 20 MG TAB PO SCH (09:00)
[2024-08-23] MEDS ORDERED: Famotidine 20 MG TAB PO SCH (09:00)
[2024-08-23] MEDS ORDERED: Pioglitazone HCl 15 MG TAB PO SCH (09:00)
[2024-08-23] MEDS ORDERED: Cyanocobalamin (Vitamin B-12) 1,000 MCG TAB PO SCH (09:00)
[2024-08-23] MEDS ORDERED: FAMOTIDINE 10 MG PO SCH (09:00)
[2024-08-23] MEDS ORDERED: Triamterene/Hydrochlorothiazide 37.5 mg/25 mg Tablet PO SCH (09:00)
[2024-08-23] MEDS ORDERED: Non-Formulary Item 1 EACH (Lisinopril [Lisinopril] 40 MG Tablet) PO SCH (09:00)
== END 2024-08-22 21:50 ==
LOC: ERS 17:25 → SURG A 23:56
PROVIDERS: ADMIT Specialist; ATTEND Specialist
DX: S32.501A Unspecified fracture of right pubis, initial encounter for closed fracture (principal); I10 Essential (primary) hypertension; E11.9 Type 2 diabetes mellitus without complications; I25.10 Atherosclerotic heart disease of native coronary artery without angina pectoris; I65.23 Occlusion and stenosis of bilateral carotid arteries; Z90.49 Acquired absence of other specified parts of digestive tract; Z98.890 Other specified postprocedural states; Z79.899 Other long term (current) drug therapy; Z79.82 Long term (current) use of aspirin; W01.0XXA Fall on same level from slipping, tripping and stumbling without subsequent striking against object, initial encounter
CPT/HCPCS: 71045; 72170; 72192; 73502; 80053; 82962; 83735; 84484; 85025; 93005; 93880; 96372; 96374; 97116; 97530; 97535; 99285; G0378; J1650; J3475; 36415; 36416; G0390; J1815